=== PATIENT | female | born 1945 | race Caucasian/White ===

== ENCOUNTER 2020-12-05 08:49 | Emergency (ER) | payer OTHER ==
[~2020-12-05] VITALS: Ht 170.2 cm; Wt 71.8 kg
[2020-12-05 09:05] VITALS: Ht 170.2 cm; Wt 71.8 kg
[2020-12-05] MEDS ORDERED: ZOCOR20 MG PO (09:06)
[2020-12-05] MEDS ORDERED: LEVOTHYROXINE88 MC1 PO (09:06)
[2020-12-05] MEDS ORDERED: CYCLOBENZAPRINE10 MG PO (10:31)
[2020-12-05] MEDS ORDERED: ACETAMINOPHEN500 M1 PO (10:31)
[2020-12-05] MEDS ORDERED: NAPROSYN500 MG PO (10:31)
[2020-12-05 11:01] VITALS: BP 138/95
== END 2020-12-05 11:02 | disposition home or self-care (01) ==
LOC: D.ER 08:49
DX: S00.83XA Contusion of other part of head, initial encounter (principal); J98.59 Other diseases of mediastinum, not elsewhere classified; M79.10 Myalgia, unspecified site; M54.2 Cervicalgia; N28.1 Cyst of kidney, acquired; I10 Essential (primary) hypertension; E78.5 Hyperlipidemia, unspecified; V89.2XXA Person injured in unspecified motor-vehicle accident, traffic, initial encounter; Y93.9 Activity, unspecified; Y92.9 Unspecified place or not applicable

== ENCOUNTER 2021-01-17 05:21 | Day surgery (SDC) | payer MEDICARE ==
[~2021-01-17] VITALS: Ht 170.2 cm; Wt 71.8 kg
[~2021-01-17 05:21] MED LIST: ACETAMINOPHEN500 M1 PO; CYCLOBENZAPRINE10 MG PO; LEVOTHYROXINE88 MC1 PO; NAPROSYN500 MG PO; ZOCOR20 MG PO
[2021-01-17 05:57] LABS: BASOPHILS 1.6 % (0-2); EOSINOPHILS 5.1 % (0-7); HEMATOCRIT 42.2 % (36.0-48.0); HEMOGLOBIN 13.7 g/dL (12-16); IMMATURE GRANULOCYTES 0.2 % (0-5); LYMPHOCYTES 25.7 % (15-50); MCH 31.1 pg (26.0-34.0); MCHC 32.5 g/dL (31.0-37.0); MCV 95.7 fL (80.0-100.0); MEAN PLATELET VOLUME 10.9 fL (7.4-10.4); MONOCYTES 13.3 % (2-11); NEUTROPHIL ABS# 3.37 10x3/uL (1.56-6.13); NEUTROPHILS 54.1 % (40-80); PLATELET COUNT 319 10x3/uL (130-400); RBC 4.41 10x6/uL (4.00-5.40); RDW 13.6 % (11.5-14.5); WBC 6.2 10x3/uL (4.8-10.8)
[2021-01-17 06:17] LABS: ANION GAP 12.3 mmol/L (8-16); CALCIUM 9.2 mg/dL (8.5-10.1); CARBON DIOXIDE 29.5 mmol/L (21.0-32.0); POTASSIUM - SERUM 3.8 mmol/L (3.5-5.1)
[2021-01-17 06:25] VITALS: Ht 170.2 cm; Wt 71.8 kg
--- NOTE | 2021-01-17 09:10 | NUR ---
REVIEWED DC INSTRUCTIONS WITH PT AND FAMILY MEMBER. INCLUDED LIST OF NSAIDS. VERBALIZED UNDERSTANDING. PIV DC'D. CATHETER INTACT. FAMILY MEMBER ASSISTING PT TO GET DRESSED.
--- NOTE | 2021-01-17 09:19 | NUR ---
DISCHARGED VIA W/C, ACCOMPANIED BY WILLIAM BRICEÑO, TO [facility] WITH DAUGHTER DRIVING. ALL BELONGINGS WITH PT.
--- NOTE | 2021-01-21 12:40 | OP ---
PATIENT NAME: JOELLE ESTRELLA MEDICAL RECORD: [id number] :49 LOCATION:D.OPS ADMISSION DATE: SURGEON: REHAN STUART MD DATE OF OPERATION: 01/17/2021 PREOPERATIVE DIAGNOSES: 1. Hiatal hernia. 2. Hypercholesterolemia. 3. Hypothyroidism. POSTOPERATIVE DIAGNOSES: 1. Hiatal hernia. 2. Hypercholesterolemia. 3. Hypothyroidism. PROCEDURE: EGD with biopsy. SURGEON: Rehan Stuart MD REPORT OF PROCEDURE: An Olympus endoscope was advanced through the mouth and esophagus. We could see there were some inflammatory changes consistent with some distal esophagitis. The GE junction rested at about 28 cm at the teeth. We were able to easily pass through the GE junction and into the stomach. The stomach had an unusual course, but we were eventually able to find the pylorus and we passed easily through the pylorus into the first portion of the duodenum. There were no signs of duodenal masses or lesions and there was no signs of any ulceration. As we pulled the scope back, a biopsy was taken from the antrum of the stomach and there appeared to be a small healing ulceration present just to the side of the pylorus. As we did a retroflex view, there were no signs of any laxity to the GE junction around the endoscope and there were no other signs of any other masses, lesions or ulcerations visible throughout the stomach. Insufflation was then removed and we pulled back the scope to the distal esophagus where another biopsy was taken. At this point, the insufflation and the scope were removed slowly with inspection of the esophagus, which showed no evidence of any stricturing. COMPLICATIONS: None. CONDITION: Stable. ANESTHESIA: TIVA. BLOOD LOSS: Minimal. TRANSINT:[id number] Voice Confirmation ID: [id number] DOCUMENT ID: [id number] REHAN STUART MD at 1240 CC: ALFIE RUVALCABA [id number] DICTATION DATE: 01/17/21815 REGIONAL ENVIRONMENTAL MANAGER: 01/17/2152 [facility] 01/17/21 [facility] [address] [place] [address]
== END 2021-01-17 09:19 | disposition home or self-care (01) ==
LOC: D.OPS 05:21
PROVIDERS: ATTEND Surgery
DX: K44.9 Diaphragmatic hernia without obstruction or gangrene (principal); E78.00 Pure hypercholesterolemia, unspecified; E03.9 Hypothyroidism, unspecified; E05.90 Thyrotoxicosis, unspecified without thyrotoxic crisis or storm